=== PATIENT | male | born 1935 | race Caucasian/White ===

== ENCOUNTER 2017-03-08 12:21 | Emergency (ER) | payer MEDICARE ==
[~2017-03-08] VITALS: Ht 185.4 cm; Wt 83.6 kg
[~2017-03-08 12:21] MED LIST: ASPI325T PO; ATOR10 PO; CALCTAB98 PO; CITA10SO PO; CITA20TA4 PO; NORC7.5T PO; OMEP20TA39 PO; PERC5TAB12 PO; PROP60 PO; VERA120T3 PO
[2017-03-08 12:30] VITALS: BP 122/67; PULSE 90; RESP 18; TEMP 98.1; O2SAT 97
[2017-03-08] MEDS ORDERED: cholesterol med (13:13)
[2017-03-08] MEDS ORDERED: VERA120T3 PO (13:13)
[2017-03-08] MEDS ORDERED: b/p med (13:13)
[2017-03-08] MEDS ORDERED: heart med (13:13)
[2017-03-08] MEDS ORDERED: PRIL20TA2 (13:13)
[2017-03-08 13:32] LABS: AUTOMATED NEUTROPHIL # 7.4 TH/MM3 (1.8-7.7); BASOPHIL # 0.1 TH/MM3 (0-0.2); BASOPHIL % 1.1 % (0.0-2.0); EOSINOPHIL # 0.1 TH/MM3 (0-0.4); EOSINOPHIL % 1.5 % (0.0-4.0); HEMATOCRIT 38.2 % (39.0-51.0); LYMPH % 13.2 % (9.0-44.0); LYMPHOCYTE # 1.3 TH/MM3 (1.0-4.8); MEAN CORPUSCULAR HEMOGLOBIN 31.9 PG (27.0-34.0); MEAN CORPUSCULAR HGB CONC 33.2 % (32.0-36.0); MONO % 9.3 % (0.0-8.0); NEUT % 74.9 % (16.0-70.0); PLATELET COUNT 197 TH/MM3 (150-450); RED BLOOD COUNT 3.98 MIL/MM3 (4.50-5.90); RED CELL DISTRIBUTION WIDTH 12.9 % (11.6-17.2); WHITE BLOOD COUNT 9.8 TH/MM3 (4.0-11.0)
[2017-03-08 13:35] LABS: HEMO FLAGS DIFF FINAL
--- NOTE | 2017-03-08 13:43 | PD ---
HPI Chief Complaint: Respiratory Symptoms Time Seen by Provider: 13:30 Travel History International Travel<30 days: No Contact w/Intl Traveler<30days: No Traveled to known affect area: No History of Present Illness HPI Patient presents with complaints of a productive cough for approximately 3 days. Denies nausea vomiting diarrhea or fever. Denies new rash. Denies sick contacts. Denies history of COPD or tobacco exposure. Denies any other significant past medical history. PFSH Past Medical History Arthritis: Yes Atrial Fibrillation: Yes Anxiety: Yes Depression: Yes Heart Rhythm Problems: Yes Cancer: No Cardiac Catheterization: Yes Cardiovascular Problems: Yes (ARRYTHMIA) High Cholesterol: Yes Congestive Heart Failure: No Diabetes: No Diminished Hearing: No Endocrine: No Gastrointestinal Disorders: Yes (GERD AND DIVERTICULITIS) Genitourinary: No Heparin Induced Thrombocytopen: No Hypertension: Yes Immune Disorder: No Implanted Vascular Access Dvce: No Musculoskeletal: Yes Neurologic: Yes Psychiatric: Yes Reproductive: No Respiratory: No Immunizations Current: No Migraines: Yes Menopausal: No Past Surgical History Abdominal Surgery: Yes (2 hernia repairs, APPENDECTOMY AGE 19) Appendectomy: Yes Cholecystectomy: Yes Coronary Artery Bypass Graft: No Eye Surgery: Yes (CATARACTS) Joint Replacement: No Oral Surgery: Yes Pacemaker: No Tonsillectomy: Yes Other Surgery: Yes Family History Family Myocardial Infarction: Yes Social History Alcohol Use: Yes (3 daily) Tobacco Use: No Substance Use: No Allergies-Medications (Allergen,Severity, Reaction): Coded Allergies: No Known Allergies (Verified , 10/10/13) Reported Meds & Prescriptions Reported Meds & Active Scripts Active Reported [cholesterol med] [heart med] Verapamil (Verapamil HCl) 120 Mg Tab 120 Mg PO BID Prilosec (Omeprazole Magnesium) 20 Mg Tab [b/p med] Review of Systems General / Constitutional: No: Fever Eyes: No: Visual changes HENT: No: Headaches Cardiovascular: No: Chest Pain or Discomfort Respiratory: Positive: Cough, No: Shortness of Breath Gastrointestinal: No: Abdominal Pain Genitourinary: No: Dysuria Musculoskeletal: No: Pain Skin: No Rash Neurologic: No: Weakness Psychiatric: No: Depression Endocrine: No: Polydipsia Hematologic/Lymphatic: No: Easy Bruising Physical Exam Narrative GENERAL: Well-nourished, well-developed patient. SKIN: Focused skin assessment warm/dry. HEAD: Normocephalic. EYES: No scleral icterus. No injection or drainage. NECK: Supple, trachea midline. No JVD or lymphadenopathy. CARDIOVASCULAR: Regular rate and rhythm without murmurs, gallops, or rubs. RESPIRATORY: Breath sounds equal bilaterally. No accessory muscle use. GASTROINTESTINAL: Abdomen soft, non-tender, nondistended. MUSCULOSKELETAL: No cyanosis, or edema. BACK: Nontender without obvious deformity. No CVA tenderness. Data Data Last Documented VS Vital Signs Date Time Temp Pulse Resp B/P (MAP) Pulse Ox O2 Delivery O2 Flow Rate FiO2 03/08/17 12:30 98.1 90 18 122/67 (85) 97 Orders Orders Complete Blood Count With Diff (03/08/17 13:13) Chest, Single Ap (03/08/17 ) Labs Laboratory Tests Test 03/08/17 12:34 White Blood Count 9.8 TH/MM3 Red Blood Count 3.98 MIL/MM3 Hemoglobin 12.7 GM/DL Hematocrit 38.2 % Mean Corpuscular Volume 96.0 FL Mean Corpuscular Hemoglobin 31.9 PG Mean Corpuscular Hemoglobin Concent 33.2 % Red Cell Distribution Width 12.9 % Platelet Count 197 TH/MM3 Mean Platelet Volume 8.3 FL Neutrophils (%) (Auto) 74.9 % Lymphocytes (%) (Auto) 13.2 % Monocytes (%) (Auto) 9.3 % Eosinophils (%) (Auto) 1.5 % Basophils (%) (Auto) 1.1 % Neutrophils # (Auto) 7.4 TH/MM3 Lymphocytes # (Auto) 1.3 TH/MM3 Monocytes # (Auto) 0.9 TH/MM3 Eosinophils # (Auto) 0.1 TH/MM3 Basophils # (Auto) 0.1 TH/MM3 CBC Comment DIFF FINAL Differential Comment [facility] Medical Decision Making Medical Screen Exam Complete: Yes Emergency Medical Condition: Yes Differential Diagnosis Pneumonia, upper respiratory infection, postnasal drainage, allergies Narrative Course Assessment and plan discussed with patient and at bedside. Chest x-ray revealed no acute cardio pulmonary process. CBC within normal limits Diagnosis Primary Impression: Productive cough Patient Instructions: General Instructions Additional Instructions: Encouraged rest fluids and Mucinex. Encouraged [id number] antihistamine without pseudoephedrine. Follow-up with PCP. Upper respiratory infection is likely viral or allergy related. Med/Other Pt SpecificInfo: Prescription(s) given Scripts Prednisone (21) 10 mg tab Dose Pack (Prednisone (21) 10 mg tab Dose Pack) 10 Mg Pack 10 MG PO DIRECTED for Inflammation, #1 DSPK 0 Refills Prov: Alberto Victor MD 03/08/17 Guaifenesin-Codeine Liq (Cheratussin AC Liq) 100-10 Mg/5 Ml Syrp 10 ML PO Q4H Y for COUGH AND COLD SYMPTOMS, #120 ML 0 Refills Do not exceed 6 doses/24 hrs. Prov: Alberto Victor MD 03/08/17 Disposition: 01 DISCHARGE HOME Condition: Good Alberto Victor MD Mar 08, 2017 13:43
[2017-03-08] MEDS ORDERED: PRED10PA PO (14:16)
[2017-03-08] MEDS ORDERED: CHERSYP2 PO (14:16)
--- NOTE | 2017-03-08 14:18 | RADRPT ---
EXAM DATE/TIME: 03/08/2017 13:05 [place] COMPARISON: CHEST SINGLE AP, July 16, 2013, 16:52. INDICATIONS : Cough and congestion. MEDICAL HISTORY : None. SURGICAL HISTORY : None. ENCOUNTER: Initial ACUITY: 3 days PAIN SCORE: 6/10 LOCATION: Bilateral chest FINDINGS: A single view of the chest demonstrates the lungs to be symmetrically aerated without evidence of mas s, infiltrate or effusion. The cardiomediastinal contours are unremarkable. Osseous structures are intact. CONCLUSION: No acute disease. Pete Soriano MD on March 08, 2017 at 13:08 Board Certified Radiologist. This report was verified electronically.
[2017-03-08 14:35] VITALS: BP 165/71
== END 2017-03-08 14:55 | disposition home or self-care (01) ==
LOC: PHED 12:21
DX: R05 Cough (principal); I10 Essential (primary) hypertension; I48.91 Unspecified atrial fibrillation; K21.9 Gastro-esophageal reflux disease without esophagitis
CPT/HCPCS: 71010; 85025; 99284

== ENCOUNTER → 2018-01-06 | Outpatient (CLI) | payer MEDICARE ==
[~2018-01-06] MED LIST changes: -ASPI325T PO; -ATOR10 PO; -CALCTAB98 PO; +CHERSYP2 PO; -CITA10SO PO; -CITA20TA4 PO; -NORC7.5T PO; -OMEP20TA39 PO; -PERC5TAB12 PO; +PRED10PA PO; +PRIL20TA2; -PROP60 PO; +b/p med; +cholesterol med; +heart med
[2018-01-06 13:34] LABS: AUTOMATED NEUTROPHIL # 4.7 TH/MM3 (1.8-7.7); BASOPHIL % 0.5 % (0.0-2.0); EOSINOPHIL # 0.1 TH/MM3 (0-0.4); EOSINOPHIL % 1.8 % (0.0-4.0); HEMATOCRIT 39.4 % (39.0-51.0); LYMPH % 18.4 % (9.0-44.0); LYMPHOCYTE # 1.2 TH/MM3 (1.0-4.8); MEAN CELL VOLUME 97.5 FL (80.0-100.0); MEAN CORPUSCULAR HEMOGLOBIN 32.1 PG (27.0-34.0); MEAN CORPUSCULAR HGB CONC 32.9 % (32.0-36.0); MEAN PLATELET VOLUME 9.8 FL (7.0-11.0); MONO % 6.9 % (0.0-8.0); MONOCYTE # 0.4 TH/MM3 (0-0.9); NEUT % 72.4 % (16.0-70.0); PLATELET COUNT 185 TH/MM3 (150-450); RED BLOOD COUNT 4.04 MIL/MM3 (4.50-5.90); RED CELL DISTRIBUTION WIDTH 13.8 % (11.6-17.2); WHITE BLOOD COUNT 6.4 TH/MM3 (4.0-11.0)
[2018-01-06 14:40] LABS: ALBUMIN 3.5 GM/DL (3.4-5.0); ALKALINE PHOSPHATASE 100 U/L (45-117); ALT (GPT) 18 U/L (12-78); AST (GOT) 19 U/L (15-37); BICARBONATE 24.9 MEQ/L (21.0-32.0); BLOOD UREA NITROGEN 19 MG/DL (7-18); CALCIUM 8.3 MG/DL (8.5-10.1); CHLORIDE 108 MEQ/L (98-107); CHOLESTEROL 121 MG/DL (120-200); CHOLESTEROL/ HDL RATIO 2.38 RATIO; CREATININE 1.07 MG/DL (0.60-1.30); FERRITIN 86 NG/ML (26-388); GLOMERULAR FILTRATION RATE 66 ML/MIN (>89); GLUCOSE,FASTING 86 MG/DL (74-99); HDL CHOLESTEROL 50.8 MG/DL (40.0-60.0); LDL CHOLESTEROL 56 MG/DL (0-99); SODIUM (NA) 143 MEQ/L (136-145); TOTAL BILIRUBIN ADULT 0.9 MG/DL (0.2-1.0); TOTAL PROTEIN 7.1 GM/DL (6.4-8.2); TRIGLYCERIDES 72 MG/DL (42-150)
== END ==
LOC: PLAB 09:22
PROVIDERS: ATTEND Family Medicine
DX: E78.2 Mixed hyperlipidemia (principal); R25.1 Tremor, unspecified; R53.83 Other fatigue
CPT/HCPCS: 36415; 80053; 80061; 82607; 82728; 84443; 85025

== ENCOUNTER 2018-07-29 07:39 | Inpatient (IN) ==
[2018-07-29] MEDS ORDERED: MethylPREDNISolone Sod Succinate Inj 125 MG/2 ML Vial IV.PUSH ONE (07:59)
--- NOTE | 2018-07-29 08:08 | ED ---
HPI General Chief Complaint: Shortness of Breath/Dyspnea Stated Complaint: trouble breathing x 3 days Time Seen by Provider: 07/29/18 07:54 Source: patient Mode of arrival: ambulatory Limitations: no limitations History of Present Illness 82 y/o male presents with 5-day history of shortness of breath and cough. He states that he does have COPD supposedly but he has not used any breathing treatments and does not really go to the doctor except for to get his medication refills for his A. fib every 6 months. He states it has gotten to the point where he can barely walk without getting severely short of breath. He states he feels worse when he moves around. He denies other modifying factors. He denies any other concurrent complaints. MD Complaint: Reports shortness of breath Onset (ago): day(s) Severity: moderate Consistency/Duration: constant Relieving factors: nothing Exacerbating factors: movement Known history of: Reports COPD Associated symptoms: Reports denies other symptoms Treatment prior to arrival: Reports none Related Data Home Medications Medication Instructions Recorded Confirmed Blood Thinner 07/29/18 Cholesterol Med 07/29/18 Xarelto 07/29/18 verapamil 07/29/18 Allergies Allergy/AdvReac Type Severity Reaction Status Date / Time No Known Allergies Allergy Uncoded 10/10/13 18:19 Review of Systems ROS: all other systems reviewed are negative PMFSH History History Provided By: Patient (aifb, copd, cholecystectomy) Medical History Medical History A-fib (Acute) HTN (hypertension) (Acute) High cholesterol (Acute) History of COPD (Acute) Surgical History Surgical History History of appendectomy (Acute) History of cholecystectomy (Acute) History of hernia repair (Acute) History of tonsillectomy (Acute) Social History Social History Substance History: No History of Abuse Smoking Status: Never smoker How Often Do You Have a Drink Containing Alcohol: 2 to 3 times a week Recent Travel in [facility] within the Last 8 Weeks: No Recent Out of Country Travel within the Last 8 Weeks: No Exam Narrative Exam Narrative: GENERAL: 82 y/o male in no apparent distress SKIN: Focused skin assessment warm/dry. HEAD: Atraumatic. Normocephalic. EYES: Pupils equal and round. No scleral icterus. No injection or drainage. ENT: No nasal bleeding or discharge. Mucous membranes pink and moist. NECK: Trachea midline. No JVD CARDIOVASCULAR: Bradycardic rate in the 40s with a regular rhythm. No murmur appreciated. RESPIRATORY: No accessory muscle use. Decreased aeration bilaterally. GASTROINTESTINAL: Abdomen soft, non-tender, nondistended. MUSCULOSKELETAL: No obvious deformities. No clubbing. No cyanosis. No edema. NEUROLOGICAL: Awake and alert. Motor grossly within normal limits. Normal speech. PSYCHIATRIC: Appropriate mood and affect; insight and judgment normal. Course Reevaluation(s) Reevaluation #1: patient updated and agrees to admit, unsure if told has heart failure Consultations Consultation #1: dr saenz agrees to admit Initial Documented Vital Signs Temperature 97.2 F L 07/29/18 07:46 Pulse Rate 42 L 07/29/18 07:46 Respiratory Rate 16 07/29/18 07:46 Blood Pressure 181/80 H 07/29/18 07:46 Pulse Oximetry 91 L 07/29/18 07:46 Last Documented Vital Signs Temperature 97.2 F L 07/29/18 07:46 Pulse Rate 45 L 07/29/18 09:26 Respiratory Rate 16 07/29/18 09:26 Blood Pressure 152/68 H 07/29/18 09:26 Pulse Oximetry 96 07/29/18 09:26 Medical Decision Making MDM Narrative Medical decision making narrative: We will check blood work, chest x-ray, EKG and dose with DuoNeb and Solu-Medrol and reevaluate Medical Screen Exam Complete: Yes Emergency Medical Condition: Yes Differential Diagnosis Differential Diagnosis: COPD, CHF, anemia, renal failure, pneumonia Medical Records Medical records reviewed: Yes I reviewed the patient's medical records. 2010 Echo shows EF of 55%, grade 1 diastolic dysfunction, stress test from 2012 is normal Lab Data Lab results reviewed: Yes I reviewed the patient's lab results. Result diagrams: 07/29/18 08:04 07/29/18 08:04 Lab Results 07/29/18 07/29/18 07/29/18 Range/Units 08:04 08:04 08:04 CBC w Diff Auto diff final WBC 6.2 (4.0-11.0) th/mm3 RBC 4.18 L (4.50-5.90) mil/mm3 Hgb 12.9 L (13.0-17.0) gm/dL Hct 40.0 (39.0-51.0) % MCV 95.7 (80.0-100.0) fL MCH 30.9 (27.0-34.0) pg MCHC 32.3 (32.0-36.0) % RDW 15.3 (11.6-17.2) % Plt Count 219 (150-450) th/mm3 MPV 9.4 (7.0-11.0) fL Neut % (Auto) 70.9 H (16.0-70.0) % Lymph % (Auto) 20.6 (9.0-44.0) % [place] % (Auto) 6.9 (0.0-8.0) % Eos % (Auto) 1.1 (0.0-4.0) % Baso % (Auto) 0.5 (0.0-2.0) % Neut # (Auto) 4.4 (1.8-7.7) th/mm3 Lymph # (Auto) 1.3 (1.0-4.8) th/mm3 [place] # (Auto) 0.4 (0.0-0.9) th/mm3 Eos # (Auto) 0.1 (0.0-0.4) th/mm3 Baso # (Auto) 0.0 (0.0-0.2) th/mm3 WBC Differential . Differential Comment . PT 13.5 H (9.8-11.6) sec INR 1.3 Ratio APTT 31.1 (23.4-31.7) sec Sodium 139 (136-145) meq/L Potassium 3.7 (3.5-5.1) meq/L Chloride 106 (98-107) meq/L Carbon Dioxide 28.0 (21.0-32.0) meq/L Anion Gap 5 (5-15) meq/L BUN 22 H (7-18) mg/dL Creatinine 1.10 (0.60-1.30) mg/dL Estimated GFR 64 L (>89) mL/min Random Glucose 116 H (74-106) mg/dL Lactic Acid (0.4-2.0) mmol/L Calcium 8.2 L (8.5-10.1) mg/dL Magnesium 1.9 (1.5-2.5) mg/dL Total Bilirubin 1.3 H (0.2-1.0) mg/dL AST 17 (15-37) U/L ALT 24 (12-78) U/L Alkaline Phosphatase 99 (45-117) U/L Total Creatine Kinase 64 (39-308) U/L Troponin I 0.04 (0.02-0.05) ng/mL B-Natriuretic Peptide (0-100) pg/mL Total Protein 7.1 (6.4-8.2) g/dL Albumin 3.2 L (3.4-5.0) g/dL 07/29/18 07/29/18 Range/Units 08:04 08:04 CBC w Diff WBC (4.0-11.0) th/mm3 RBC (4.50-5.90) mil/mm3 Hgb (13.0-17.0) gm/dL Hct (39.0-51.0) % MCV (80.0-100.0) fL MCH (27.0-34.0) pg MCHC (32.0-36.0) % RDW (11.6-17.2) % Plt Count (150-450) th/mm3 MPV (7.0-11.0) fL Neut % (Auto) (16.0-70.0) % Lymph % (Auto) (9.0-44.0) % [place] % (Auto) (0.0-8.0) % Eos % (Auto) (0.0-4.0) % Baso % (Auto) (0.0-2.0) % Neut # (Auto) (1.8-7.7) th/mm3 Lymph # (Auto) (1.0-4.8) th/mm3 [place] # (Auto) (0.0-0.9) th/mm3 Eos # (Auto) (0.0-0.4) th/mm3 Baso # (Auto) (0.0-0.2) th/mm3 WBC Differential Differential Comment PT (9.8-11.6) sec INR Ratio APTT (23.4-31.7) sec Sodium (136-145) meq/L Potassium (3.5-5.1) meq/L Chloride (98-107) meq/L Carbon Dioxide (21.0-32.0) meq/L Anion Gap (5-15) meq/L BUN (7-18) mg/dL Creatinine (0.60-1.30) mg/dL Estimated GFR (>89) mL/min Random Glucose (74-106) mg/dL Lactic Acid 1.5 (0.4-2.0) mmol/L Calcium (8.5-10.1) mg/dL Magnesium (1.5-2.5) mg/dL Total Bilirubin (0.2-1.0) mg/dL AST (15-37) U/L ALT (12-78) U/L Alkaline Phosphatase (45-117) U/L Total Creatine Kinase (39-308) U/L Troponin I (0.02-0.05) ng/mL B-Natriuretic Peptide 1246 H (0-100) pg/mL Total Protein (6.4-8.2) g/dL Albumin (3.4-5.0) g/dL Imaging Data Attestation: I personally reviewed and interpreted this imaging study as follows : Radiologist's impression: Chest X-Ray 07/29/18 07:59 CONCLUSION: Diminished lung volumes and minimal density in the right upper lobe and left lower lobe could be atelectasis or infiltrate. Discharge Plan Discharge Disposition Patient Disposition: ED Admit(ED Internal Use Only) Discharge Order Discharge Orders: ED Use Only Admit Order (Routine); Ordered 07/29/18 Ordered By: Annabel Corbin Discharge Details Diagnosis: CHF (congestive heart failure), Bradycardia, A-fib Physicians Team ED Provider: Annabel Corbin Primary Care Provider: Mahesh Villavicencio Rxs /Orders / Referrals /Forms Prescriptions: No Action Blood Thinner RF: 0 Cholesterol Med RF: 0 Xarelto RF: 0 verapamil RF: 0 Discharge Interventions Interventions: Vital Signs Last Done: 07/29/18 09:26 Status ED Status: Admitted Patient
[2018-07-29 08:24] LABS: Baso % (Auto) 0.5 % (0.0-2.0); Eos # (Auto) 0.1 th/mm3 (0.0-0.4); Eos % (Auto) 1.1 % (0.0-4.0); Hemoglobin 12.9 gm/dL (13.0-17.0); Lymph # (Auto) 1.3 th/mm3 (1.0-4.8); Lymph % (Auto) 20.6 % (9.0-44.0); Mean Corpuscular HGB Conc 32.3 % (32.0-36.0); Mean Corpuscular Hemoglobin 30.9 pg (27.0-34.0); Mean Corpuscular Volume 95.7 fL (80.0-100.0); Mean Platelet Volume 9.4 fL (7.0-11.0); Mono # (Auto) 0.4 th/mm3 (0.0-0.9); Mono % (Auto) 6.9 % (0.0-8.0); Neut # (Auto) 4.4 th/mm3 (1.8-7.7); Neut % (Auto) 70.9 % (16.0-70.0); Platelet Count 219 th/mm3 (150-450); Red Blood Count 4.18 mil/mm3 (4.50-5.90); Red Cell Distribution Width 15.3 % (11.6-17.2); White Blood Count 6.2 th/mm3 (4.0-11.0)
[2018-07-29 08:35] LABS: Activated Partial Thrombo Time 31.1 sec (23.4-31.7); INR 1.3 Ratio; Prothrombin Time 13.5 sec (9.8-11.6)
--- NOTE | 2018-07-29 08:42 | XR ---
EXAM DATE: 07/29/2018 8:40 AM EST AGE/SEX: 82 years / Male INDICATIONS: Short of breath. CLINICAL DATA: This is the patient's initial encounter. Patient reports that signs and symptoms have been present for 4 - 6 days and indicates a pain score of 0/10. MEDICAL/SURGICAL HISTORY: Chronic obstructive pulmonary disease. None. COMPARISON: [facility], CHEST SINGLE AP, 03/08/2017. . FINDINGS: A single AP view of the chest demonstrates diminished lung volumes and minimal density in the right u pper lobe and left lower lobe. Heart enlarged. The cardiomediastinal contours are unremarkable. Oss eous structures are intact. CONCLUSION: Diminished lung volumes and minimal density in the right upper lobe and left lower lobe could be atel ectasis or infiltrate. Electronically signed by: Pete Soriano MD Board Certified Radiologist 07/29/2018 8:41 AM EST
[2018-07-29 08:46] LABS: Chloride 106 meq/L (98-107); Potassium 3.7 meq/L (3.5-5.1); Sodium 139 meq/L (136-145)
[2018-07-29] MEDS ORDERED: Azithromycin Inj 500 MG in Sodium Chlor 0.9% Inj 250 ML IV.SIG ONE (08:52)
[2018-07-29 09:01] LABS: Albumin 3.2 g/dL (3.4-5.0); Anion Gap 5 meq/L (5-15); Blood Urea Nitrogen 22 mg/dL (7-18); Calcium 8.2 mg/dL (8.5-10.1); Glucose,Random 116 mg/dL (74-106); Magnesium 1.9 mg/dL (1.5-2.5)
[2018-07-29 09:04] LABS: Alanine Aminotransferase 24 U/L (12-78); Aspartate Aminotransferase 17 U/L (15-37); Glomerular Filtration Rate 64 mL/min (>89)
[2018-07-29 09:06] LABS: Total Protein 7.1 g/dL (6.4-8.2)
[2018-07-29 09:07] LABS: Alkaline Phosphatase 99 U/L (45-117)
[2018-07-29 09:09] LABS: Troponin I 0.04 ng/mL (0.02-0.05)
[2018-07-29 09:13] LABS: Creatine Kinase 64 U/L (39-308)
[2018-07-29] MEDS ORDERED: Acetaminophen 325 MG Tablet PO PRN (09:35)
[2018-07-29] MEDS ORDERED: Bisacodyl 10 MG Supp RECTAL PRN (09:35)
--- NOTE | 2018-07-29 11:07 | P.HPIM ---
History of Present Illness Service: Hospitalist Primary Care Physician: Mahesh Villavicencio MD Chief Complaint: Shortness of breath History of Present Illness: Mr. Diamond is a pleasant 82 year old male with a history of Afib, hyperlipidemia, GERD who presents to the ED on 07/29/2018 due to shortness of breath that started about 5 days prior to this admission. He reports significant dyspnea limiting his ability to walk much. He also reports orthopnea and when he sits up, he breaths much better. He has been having white color sputum production but no fever, chills. No leg swelling but reports some abdominal discomfort. Denies any chest pain, fever, chills. No changes in bowel or bladder habits. Does not have a freight broker. His heart rate has been low, in the low 40s for a long time and he feels very weak, fatigued most of the time. He reports that 90% of the time he is sleeping. Past medical history: GERD, Afib, hyperlipidemia Past surgical history: Cholecystectomy Social history: Denies using tobacco. Drinks 2-3 drinks every other day. Family history No family history of Alzheimer's or Parkinson's. Inpatient Certification Inpatient Certification: I certify that the inpatient services were ordered in accordance with Medicare regulations governing the order. This includes certification that hospital inpatient services are reasonable and necessary and in the case of services not specified as inpatient-only under 42 CFR 419.22(n), that they are appropriately provided as inpatient services in accordance to with the 2-midnight benchmark under 43 CFR 412.3(e) Estimated Total Length of Stay (Days): 3 Plans for Post Hospital Care: Home Review of Systems Review of Systems: all other systems reviewed are negative [facility] Medical History Medical History A-fib (Acute) HTN (hypertension) (Acute) High cholesterol (Acute) History of COPD (Acute) Surgical History Surgical History History of appendectomy (Acute) History of cholecystectomy (Acute) History of hernia repair (Acute) History of tonsillectomy (Acute) Social History Social History Substance History: No History of Abuse Second Hand Smoke Exposure: No Smoking Status: Never smoker How Often Do You Have a Drink Containing Alcohol: 2 to 3 times a week Recent Travel in [facility] within the Last 8 Weeks: No Recent Out of Country Travel within the Last 8 Weeks: No Immunization History Tetanus Immunization: Unsure Medications and Allergies Allergies Allergy/AdvReac Type Severity Reaction Status Date / Time No Known Allergies Allergy Uncoded 10/10/13 18:19 Home Medications Medication Instructions Recorded Confirmed Type Blood Thinner 07/29/18 History Cholesterol Med 07/29/18 History Xarelto 07/29/18 History verapamil 07/29/18 History Active Medications: Active Medications Acetaminophen (Tylenol) 650 mg PO Q4H PRN PRN Reason: Fever, headache, pain 1-4 Al Hydroxide/Mg Hydroxide (Milk Of Magnesia Liq) 30 ml PO Q12H PRN PRN Reason: Mild Constipation Bisacodyl (Dulcolax Supp) 10 mg RECTAL DAILY PRN PRN Reason: SEVERE CONSITIPATION Lactulose (Lactulose Liq) 30 ml PO DAILY PRN PRN Reason: SEVERE CONSITIPATION Ondansetron HCl (Zofran Inj) 4 mg IV.PUSH Q6H PRN PRN Reason: NAUSEA OR VOMITING Sennosides (Senokot) 17.2 mg PO Q12H PRN PRN Reason: Moderate Constipation Sodium Chloride (Ns Flush) 2 ml IV.FLUSH BID ANA Sodium Chloride (Ns Flush) 2 ml IV.FLUSH PRN PRN PRN Reason: FLUSH AFTER USING IV ACCESS Physical Exam Vital signs: Vital Signs 07/29/18 07:46 07/29/18 08:17 07/29/18 09:26 Temperature 97.2 F L Pulse Rate 42 L 46 L 45 L Respiratory Rate 16 19 16 Blood Pressure 181/80 H 152/68 H Pulse Oximetry 91 L 96 07/29/18 10:41 Temperature Pulse Rate 45 L Respiratory Rate 16 Blood Pressure 171/86 H Pulse Oximetry 96 Intake & Output 07/28/18 07/29/18 07/29/18 18:59 06:59 18:59 Intake Total 250 / 250 Balance 250 / 250 Weight 86.9 kg Intake: IV 250 / 250 Azithromycin Inj 500 MG In NS 250 / 250 Inj 250 ML @ 250 mls/hr IV.SIG ONCE ONE Rx#:[id number] Narrative: GENERAL: This is a well-nourished, well-developed patient, in no apparent distress. SKIN: No rashes, ecchymoses or lesions. Warm and dry. HEAD: Atraumatic. Normocephalic. No temporal or scalp tenderness. EYES: Pupils equal round and reactive. No injection or drainage. ENT: Nose without bleeding, purulent drainage or septal hematoma. Airway patent. NECK: Trachea midline. No lymphadenopathy. Supple, nontender, no meningeal signs. CARDIOVASCULAR: Bradycardic without murmurs, gallops, or rubs. No JVD. RESPIRATORY: Clear to auscultation. Breath sounds equal bilaterally. No wheezes , rales, or rhonchi. Mild bibasilar crackles. GASTROINTESTINAL: Abdomen soft, non-tender, nondistended. No guarding. MUSCULOSKELETAL: Extremities without clubbing, cyanosis, or edema. NEUROLOGICAL: Awake and alert. Cranial nerves II through XII intact. No focal neurological deficits. Normal speech Results Labs CBC & Chem 7: 07/29/18 08:04 07/29/18 08:04 Imaging Impressions Chest X-Ray 07/29/18 07:59 CONCLUSION: Diminished lung volumes and minimal density in the right upper lobe and left lower lobe could be atelectasis or infiltrate. Caprini VTE Risk Assessment Caprini VTE Risk Assessment: Moderate/High Risk (score >= 2) Caprini Risk Assessment Model: Point Value = 1 Point Value = 2 Point Value = 3 Point Value = 5 Age 41-60 Minor surgery BMI > 25 kg/m2 Swollen legs Varicose veins or History of unexplained or recurrent spontaneous Oral contraceptives or hormone replacement Sepsis (< 1 month) Serious lung disease, including pneumonia (< 1 month) Abnormal pulmonary function Acute myocardial infarction Congestive heart failure (< 1 month) History of inflammatory bowel disease Medical patient at bed rest Age 61-74 Arthroscopic surgery Major open surgery (> 45 min) Laparoscopic surgery (> 45 min) Malignancy Confined to bed (> 72 hours) Immobilizing plaster cast Central venous access Age >= 75 History of VTE Family history of VTE Factor V Leiden Prothrombin [id number] Lupus anticoagulant Anticardiolipin antibodies Elevated serum homocysteine Heparin-induced thrombocytopenia Other congenital or acquired thrombophilia Stroke (< 1 month) Elective arthroplasty Hip, pelvis, or leg fracture Acute spinal cord injury (< 1 month) Prophylaxis Regimen: Total Risk Factor Score Risk Level Prophylaxis Regimen 0-1 Low Early ambulation 2 Moderate Order ONE of the following: *Sequential Compression Device (SCD) *Heparin 5000 units SQ BID 3-4 Higher Order ONE of the following medications: *Heparin 5000 units SQ TID *Enoxaparin/Lovenox 40 mg SQ daily (WT < 150 kg, CrCl > 30 mL/min) *Enoxaparin/Lovenox 30 mg SQ daily (WT < 150 kg, CrCl > 10-29 mL/min) *Enoxaparin/Lovenox 30 mg SQ BID (WT < 150 kg, CrCl > 30 mL/min) AND/OR *Sequential Compression Device (SCD) 5 or more Highest Order ONE of the following medications: *Heparin 5000 units SQ TID (Preferred with Epidurals) *Enoxaparin/Lovenox 40 mg SQ daily (WT < 150 kg, CrCl > 30 mL/min) *Enoxaparin/Lovenox 30 mg SQ daily (WT < 150 kg, CrCl > 10-29 mL/min) *Enoxaparin/Lovenox 30 mg SQ BID (WT < 150 kg, CrCl > 30 mL/min) AND *Sequential Compression Device (SCD) Assessment and Plan Plan Ms. Diamond is a pleasant 82 year old male with a history of Afib, hyperlipidemia, GERD who presents to the ED on 07/29/2018 due to worsening dyspnea, orthopnea, white sputum production. No fever, chills. Acute CHF exacerbation -BNP is elevated. No recent Echo done. -Will obtain Echocardiogram. Start patient on Lasix 40mg IV BID. -We can switch to PO Torsemide tomorrow. Atrial fibrillation Hyperlipidemia Bradycardia -Patient is on Propranolol 20mg and Verpamil 180mg Qday -BB and CCB are likely the reason for bradycardia and fatigue. -Will hold off using any saira paco for now. -If heart rate goes above 80-90, will consider low dose metoprolol 12.5mg BID. -Continue statin. GERD -Continue ranitidine. Full code. SCDs.
[2018-07-29 11:31] LABS: Bilirubin,Urine Negative (Negative); Clarity,Urine Clear (Clear); Color,Urine Yellow (Yellw/Straw); Glucose,Urine (UA) Negative (Negative); Leukocyte Esterase,Urine Negative (Negative); Nitrite,Urine Negative (Negative); PH,Urine 5.5 (5.0-8.5); Urobilinogen,Urine 0.2 mg/dL (Less than 2)
[2018-07-29 11:36] LABS: Hyaline Casts,Urine 0-3 /lpf (0-3); RBC,Urine 0-3 /hpf (0-3); Squamous Epithelial Cell,Urine 0-5 /hpf (0-5)
--- NOTE | 2018-07-29 16:55 | ECHRPT ---
Indication: Heart Failure CONCLUSIONS Normal left ventricular size. Mild concentric left ventricular hypertrophy. The left ventricular systolic function is normal with an estimated ejection fraction in the range of 55-60%. The left atrial size is [id number] dilated. Mild mitral valve regurgitation. Mitral annular calcification is present. Aortic valve sclerosis is present. mean valve gradient = 23 mm hg c/w mild stenosis Trace aortic valve regurgitation. There is mild tricuspid valve regurgitation. The estimated pulmonary arterial pressure is 59 mmHg. Trivial pulmonary valve regurgitation. BP: 178 / 86 HR: 49 Rhythm: MEASUREMENTS (Male / Female) Normal Values Technical Quality:Fair 2D ECHO LV Diastolic Diameter PLAX 4.7 cm 4.2 - 5.9 / 3.9 - 5.3 cm LV Systolic Diameter PLAX 2.8 cm IVS Diastolic Thickness 1.2 cm 0.6 - 1.0 / 0.6 - 0.9 cm LVPW Diastolic Thickness 1.2 cm 0.6 - 1.0 / 0.6 - 0.9 cm LV Relative Wall Thickness 0.5 RV Internal Dim ED PLAX 3.9 cm LVOT Diameter 2.4 cm Aortic Root Diameter 3.3 cm LA Systolic Diameter LX 5.2 cm 3.0 - 4.0 / 2.7 - 3.8 cm DOPPLER AV Peak Velocity 255.0 cm/s AV Peak Gradient 26.0 mmHg AV Mean Gradient 23.0 mmHg AV Velocity Time Integral 73.9 cm LVOT Peak Velocity 197.0 cm/s LVOT Peak Gradient 15.5 mmHg LVOT Velocity Time Integral 44.2 cm LVOT Cardiac Index 4648.8 cm/minm AV Area Cont Eq vti 2.7 cm AV Area Cont Eq pk 3.5 cm Mitral E Point Velocity 101.0 cm/s Mitral A Point Velocity 57.3 cm/s Mitral E to A Ratio 1.8 LV E' Lateral Velocity 9.8 cm/s Mitral E to LV E' Lateral Ratio 10.3 LV E' Septal Velocity 6.0 cm/s Mitral E to LV E' Septal Ratio 16.7 TR Peak Velocity 351.0 cm/s TR Peak Gradient 49.3 mmHg Right Atrial Pressure 10.0 mmHg Pulmonary Artery Systolic Pressu 59.3 mmHg Right Ventricular Systolic Press 59.3 mmHg PV Peak Velocity 138.0 cm/s PV Peak Gradient 7.6 mmHg FINDINGS LEFT VENTRICLE Normal left ventricular size. Mild concentric left ventricular hypertrophy. The left ventricular systolic function is normal with an estimated ejection fraction in the range of 55-60%. RIGHT VENTRICLE Normal right ventricular size and systolic function. LEFT ATRIUM The left atrial size is [id number] dilated. RIGHT ATRIUM The right atrial size is normal. ATRIAL SEPTUM Normal atrial septal thickness without atrial level shunting by limited color doppler interrogation. AORTA The aortic root and proximal ascending aorta are normal in size on limited imaging. MITRAL VALVE Mild mitral valve regurgitation. Mitral annular calcification is present. AORTIC VALVE Trileaflet aortic valve. Aortic valve sclerosis is present. Trace aortic valve regurgitation. TRICUSPID VALVE There is mild tricuspid valve regurgitation. The estimated pulmonary arterial pressure is 59 mmHg. PULMONARY VALVE Trivial pulmonary valve regurgitation. VESSELS The inferior vena cava was not well visualized. PERICARDIUM No pericardial effusion. Chao Mendoza MD, FACC, [facility] (Electronically Signed) Final Date:29 July 2018 16:54
--- NOTE | 2018-07-29 17:21 | ECG ---
Date Performed: 07/29/2018 Time Performed: 08:11:15 PTAGE: 82 years EKG: Atrial fibrillation with slow ventricular response and ectopic Ventricular beats. MARKED LE FT AXIS DEVIATION RIGHT BUNDLE BRANCH BLOCK When compared to previous tracing, atrial fibrillation parekh s replaced Sinus rhythm . ABNORMAL ECG PREVIOUS TRACING : 07/16/2013 17.28 DOCTOR: Grady Young Interpretating Date/Time 07/29/2018 17:20:32
--- NOTE | 2018-07-30 10:07 | P.PNIM ---
Subjective Interval history: Follow up for CHF, bradycardia. Patient is currently doing well. No chest pain, shortness of breath, fever, chills. Patient is bradycardic but no symptoms. On ambulation, his heart rate went up appropriately. Physical Exam Vital signs: Vital Signs 07/29/18 10:41 07/29/18 12:35 07/29/18 13:57 Temperature Pulse Rate 45 L 50 L 45 L Respiratory Rate 16 16 16 Blood Pressure 171/86 H 180/84 H 178/86 H Pulse Oximetry 96 100 100 07/29/18 16:59 07/29/18 20:00 07/30/18 00:00 Temperature 97.7 F 96.8 F L 96.5 F L Pulse Rate 52 L 45 L 45 L Respiratory Rate 17 18 18 Blood Pressure 200/91 H 131/63 124/60 Pulse Oximetry 95 94 L 95 07/30/18 04:00 07/30/18 08:00 Temperature 96.1 F L 97.1 F L Pulse Rate 38 L 50 L Respiratory Rate 18 20 Blood Pressure 125/63 133/60 Pulse Oximetry 96 95 Intake & Output 07/29/18 07/30/18 07/30/18 18:59 06:59 18:59 Intake Total 350 / 350 Output Total 800 / 800 Balance 350 / 350 -800 / -800 Weight 86.9 kg 82.4 kg Intake: IV 350 / 350 Azithromycin Inj 500 MG In NS 250 / 250 Inj 250 ML @ 250 mls/hr IV.SIG ONCE ONE Rx#:[id number] Rocephin Inj 1,000 MG In NS Inj 100 / 100 100 ML @ 200 mls/hr IV.SIG ONCE ONE Rx#:[id number] Output: Urine 800 / 800 Other: # Voids 3 Narrative: GENERAL: Alert, NAD. SKIN: Warm and dry. HEAD: Normocephalic. EYES: No scleral icterus. No injection or drainage. NECK: Supple, trachea midline. No JVD or lymphadenopathy. CARDIOVASCULAR: Bradycardic without murmurs, gallops, or rubs. RESPIRATORY: Breath sounds equal bilaterally. No accessory muscle use. GASTROINTESTINAL: Abdomen soft, non-tender, nondistended. MUSCULOSKELETAL: No cyanosis, or edema. BACK: Nontender without obvious deformity. No CVA tenderness. Results Labs CBC & Chem 7: 07/29/18 08:04 07/29/18 08:04 Labs: Microbiology 07/29/18 08:26 Nasal Wash Influenza Types A,B Antigen - Final Negative for FLU A and B antigen Infection due to influenza A or B cannot be ruled out since the antigen present in the sample may be below the detection limit of the test. Assessment and Plan Plan Ms. Diamond is a pleasant 82 year old male with a history of Afib, hyperlipidemia, GERD who presents to the ED on 07/29/2018 due to worsening dyspnea, orthopnea, white sputum production. No fever, chills. Acute CHF exacerbation, likely diastolic -BNP is elevated. No recent Echo done. -Echo shows normal EF. patient received Lasix 40mg IV BID. -Will switch to PO torsemide on discharge. Atrial fibrillation Hyperlipidemia Bradycardia -Patient was oon Propranolol 20mg and Verpamil 180mg Qday at home. -BB and CCB are likely the reason for bradycardia and fatigue. -Will hold off using any saira paco for now. -If heart rate goes above 80-90, will consider low dose metoprolol 12.5mg BID. -Continue statin. GERD -Continue ranitidine. Full code. SCDs. Discharge patient to home Condition on discharge: Improved Heart healthy Diet as tolerated Ad Maureen activity Rx written: D/C Propranolol and Verapamil. Follow-up with primary care physician within 1-2 weeks. Cardiology follow up with Dr. Terry within 1-2 weeks. Progress Note: Quality VTE Deep Vein Thrombosis/Pulmonary Embolism Present on Admission: No
[2018-07-30 15:27] VITALS: BP 151/66; PULSE 45; RESP 16; TEMP 96.2; O2SAT 91
== END 2018-07-30 15:00 | disposition home or self-care (01) | DRG 293 ==
LOC: PHED 07:39 → PHEDA 09:35 → PH3 16:31
PROVIDERS: ADMIT Hospitalist; ATTEND Hospitalist
CPT/HCPCS: 71010; 71045; 80053; 81001; 82550; 83520; 83605; 83735; 83880; 84443; 84484; 85025; 85610; 85730; 87040; 87275; 87276; 87804; 90774; 90775; 93005; 93306; 94664; 96374; 96375; 99285; C8952; J0456; J0696; J1940; J2930; J7050